=== PATIENT | female | born 1970 | race Caucasian/White ===

== ENCOUNTER → 2017-03-25 | Outpatient (CLI) | payer MEDICARE ==
--- NOTE | 2017-03-25 12:09 | KCIC ---
Indication: Cough for 3 months. Time of exam 11:33 AM Comparison is made with prior chest from 11/23/2013. The heart size is stable. Lungs are clear. No infiltrates are detected. No effusion or pneumothorax is seen. There are postop changes in the lower cervical spine. IMPRESSION: No acute cardiopulmonary process is detected. Electronically signed by: Jeff Manzanares MD (03/25/2017 12:06 PM) [id number]
== END | disposition home or self-care (01) ==
LOC: KCIC 11:19
PROVIDERS: ATTEND Nurse Practitioner Family
DX: R05 Cough (principal)
CPT/HCPCS: 71020

== ENCOUNTER → 2017-10-15 | Outpatient (CLI) | payer MEDICARE | END | disposition home or self-care (01) | LOC: KCIC US 13:32 | DX: D25.9 Leiomyoma of uterus, unspecified (principal) | CPT/HCPCS: 76856 ==